=== PATIENT | female | born 1955 | race Caucasian/White ===

== ENCOUNTER 2018-02-10 15:55 | Outpatient (CLI) | payer OTHER | END 2018-02-10 15:56 | disposition home or self-care (01) | LOC: BICMAMMO 15:55 | PROVIDERS: ATTEND Obstetrics & Gynecology | DX: Z12.31 Encounter for screening mammogram for malignant neoplasm of breast (principal); R92.1 Mammographic calcification found on diagnostic imaging of breast | CPT/HCPCS: 77063; 77067 ==

== ENCOUNTER 2019-03-04 16:23 | Outpatient (CLI) | payer BC ==
--- NOTE | 2019-03-05 08:09 | MMO ---
Bilateral MAMMO Bilat Screen [facility]. CLINICAL HISTORY: Patient is 63 years old and is seen for screening. The patient has no family history of breast cancer. The patient has no personal history of cancer. VIEWS: The views performed were: bilateral craniocaudal with tomosynthesis and bilateral mediolateral oblique with tomosynthesis. FILMS COMPARED: The present examination has been compared to prior imaging studies performed at [facility] on 01/29/2014, 02/06/2016, 02/07/2017 and 02/10/2018. MAMMOGRAM FINDINGS: The breasts are heterogeneously dense, which could obscure a lesion on mammography. There are stable benign appearing calcifications seen in both breasts. There are no suspicious masses, suspicious calcifications, or new areas of architectural distortion. IMPRESSION: THERE IS NO MAMMOGRAPHIC EVIDENCE OF MALIGNANCY. A ROUTINE FOLLOW-UP MAMMOGRAM IN 1 YEAR IS RECOMMENDED. THE RESULTS OF THIS EXAM WERE SENT TO THE PATIENT. ACR BI-RADS Category 2 - Benign finding MAMMOGRAPHY NOTE: 1. A negative mammogram report should not delay a biopsy if a dominant of clinically suspicious mass is present. 2. Approximately 10% to 15% of breast cancers are not detected by mammography. 3. Adenosis and dense breasts may obscure an underlying neoplasm. Reported by: JESUS ALBERTO FRANK MD Electonically Signed: [id number]
== END 2019-03-04 16:24 | disposition home or self-care (01) ==
LOC: BICMAMMO 16:23
PROVIDERS: ATTEND Obstetrics & Gynecology
DX: Z12.31 Encounter for screening mammogram for malignant neoplasm of breast (principal)
CPT/HCPCS: 77063; 77067

== ENCOUNTER 2020-03-17 13:35 | Outpatient (CLI) | payer BC ==
--- NOTE | 2020-03-17 14:04 | MMO ---
Left Breast MAMMO Unilat Diag [facility]. CLINICAL HISTORY: Patient is 64 years old and is seen for diagnostic exam. The patient has no family history of breast cancer. The patient has no personal history of cancer. VIEWS: The views performed were: left craniocaudal magnification; left mediolateral magnification; and left mediolateral with tomosynthesis. FILMS COMPARED: The present examination has been compared to prior imaging studies performed at [facility] on 02/07/2017, 02/10/2018, 03/04/2019 and 03/16/2020. This study has been interpreted with the assistance of computer-aided detection. MAMMOGRAM FINDINGS: The breast is heterogeneously dense, which could obscure a lesion on mammography. There are calcifications with grouped or clustered distribution seen in the left breast. These are new with respect to 2019. IMPRESSION: CALCIFICATIONS IN THE LEFT BREAST ARE SUSPICIOUS. A STEREOTACTIC BREAST BIOPSY IS RECOMMENDED. RESULTS AND RECOMMENDATIONS DISCUSSED WITH THE PATIENT AND QUESTIONS ANSWERED. THE RESULTS OF THIS EXAM WERE SENT TO THE PATIENT. ACR BI-RADS Category 4 - Suspicious abnormality - biopsy should be considered MAMMOGRAPHY NOTE: 1. A negative mammogram report should not delay a biopsy if a dominant of clinically suspicious mass is present. 2. Approximately 10% to 15% of breast cancers are not detected by mammography. 3. Adenosis and dense breasts may obscure an underlying neoplasm. Reported by: DAVIS WALKER MD Electonically Signed: [id number]
== END 2020-03-17 13:36 | disposition home or self-care (01) ==
LOC: BICMAMMO 13:35
PROVIDERS: ATTEND Obstetrics & Gynecology
DX: R92.1 Mammographic calcification found on diagnostic imaging of breast (principal)
CPT/HCPCS: G0279

== ENCOUNTER → 2020-03-28 | Day surgery (SDC) | payer BC ==
--- NOTE | 2020-03-28 09:07 | MMO ---
EXAM: MAMMO Brst Bx Stereo Biopsy marker clip is left breast PROVIDED CLINICAL HISTORY: Left breast microcalcifications at the 1:00 position. Biopsy recommended COMPARISON: Mammograms on 03/16/2020 and 03/17/2020 TECHNIQUE: The procedure including the risks and complications were explained to the patient, and informed conse nt was obtained. Patient was placed on the stereotactic guided breast biopsy table in the prone position. Microcalcifications left breast were localized utilizing stereotactic guidance. An area was meticulously prepped in usual fashion. The skin and subcutaneous tissues were infiltrated with buffered 1% lidocaine with epinephrine for local anesthesia. A small skin incision was made. A 10-gauge stereotactic guided breast biopsy needle was advanced followed by stereotactic imaging. Ne edle was advanced and again imaging was performed. Total of six 10-gauge core needle biopsy specimens were obtained. Specimen mammogram was performed, but no significant calcifications were pre sent within the specimen. Calcifications were re-localized. However, after localization, the targeted site was slightly more posterior to the initial skin incision. As result, the skin and subcu taneous tissues just posterior to this region were infiltrated with buffered 1% lidocaine for local anesthesia. An additional small skin incision was again made. Biopsy needle was placed and stereotact ic images were performed. Stereotactic guided breast biopsy was again performed. Specimen mammogram again did not yield significant amount of microcalcifications. The needle was slightly withdrawn and an additional 3 biopsy specimens were obtained. Specimen mammogram was performed which showed multiple calcifications in the specimen. A biopsy marker clip was then deployed at site of biopsy. Needle was removed, and hemostasis was with direct pressure. After hemostasis was achieved, a dry sterile dressing was placed. Post biopsy mammogram was performed with a marker clip at site of biopsy and mild interval decrease in number of microcalcifications. The patient tolerated the procedure well and without immediate complication. IMPRESSION: 1. Technically successful stereotactic guided biopsy left breast microcalcifications 2. Technically successful biopsy marker clip placement. 3. Pathology results are pending.
--- NOTE | 2020-03-28 10:05 | MMO ---
EXAM: MAMMO Surgial Specimen PROVIDED CLINICAL HISTORY: Left breast microcalcifications. COMPARISON: Mammograms on 03/17/2020 and 03/16/2020 FINDINGS/IMPRESSION: 3 separate specimen mammograms are obtained each with multiple obtained core biopsy specimens. Initia l specimens only demonstrated a view tiny punctate calcifications. Final specimen mammogram demonstrates multiple calcifications in the provided specimen.
--- NOTE | 2020-03-28 10:08 | MMO ---
EXAM: MAMMO Diag Post Proc Ltd Lt PROVIDED CLINICAL HISTORY: Post stereotactic guided breast biopsy of left breast microcalcifications and biopsy marker clip plac ement. COMPARISON: Mammograms on 03/16/2020 03/17/2020 FINDINGS: Biopsy marker clip is seen in the upper outer left breast middle depth in region of microcalcificatio ns and associated focal asymmetry. Microcalcifications do persist but are slightly decreased in number. Slightly greater increased density is seen at biopsy site related to recent biopsy. IMPRESSION: Post biopsy mammogram demonstrates biopsy marker clip at site of biopsy.
== END ==
LOC: MAMMO 07:04
PROVIDERS: ATTEND Obstetrics & Gynecology
PROC: 0H9U3ZX Drainage of Left Breast, Percutaneous Approach, Diagnostic (ICD-10-PCS; principal; 2020-03-28)
DX: D05.12 Intraductal carcinoma in situ of left breast (principal)
CPT/HCPCS: 19081; 76098; 88305; 88313; 88341; 88342

== ENCOUNTER 2021-04-05 13:30 | Outpatient (CLI) | payer BC | END 2021-04-05 13:31 | disposition home or self-care (01) | LOC: BICMAMMO 13:30 | PROVIDERS: ATTEND Surgery | DX: Z08 Encounter for follow-up examination after completed treatment for malignant neoplasm (principal); Z85.3 Personal history of malignant neoplasm of breast; Z17.0 Estrogen receptor positive status [ER+] | CPT/HCPCS: 77066; G0279 ==

== ENCOUNTER 2022-04-09 13:58 | Outpatient (CLI) | payer MEDICARE, OTHER | END 2022-04-09 13:59 | disposition home or self-care (01) | LOC: BICMAMMO 13:58 | PROVIDERS: ATTEND Internal Medicine Hematology & Oncology | DX: C50.912 Malignant neoplasm of unspecified site of left female breast (principal); Z98.890 Other specified postprocedural states | CPT/HCPCS: 77066; G0279 ==

== ENCOUNTER 2023-04-11 13:21 | Outpatient (CLI) | payer MEDICARE, OTHER | END 2023-04-11 13:22 | disposition home or self-care (01) | LOC: BICMAMMO 13:21 | PROVIDERS: ATTEND Internal Medicine Hematology & Oncology | DX: Z08 Encounter for follow-up examination after completed treatment for malignant neoplasm (principal); Z13.820 Encounter for screening for osteoporosis; Z85.3 Personal history of malignant neoplasm of breast | CPT/HCPCS: 77066; 77080; G0279 ==

== ENCOUNTER 2024-04-13 13:28 | Outpatient (CLI) | payer MEDICARE, OTHER | END 2024-04-13 13:29 | disposition home or self-care (01) | LOC: BICMAMMO 13:28 | PROVIDERS: ATTEND Internal Medicine Hematology & Oncology | DX: Z08 Encounter for follow-up examination after completed treatment for malignant neoplasm (principal); Z85.3 Personal history of malignant neoplasm of breast | CPT/HCPCS: 77066; G0279 ==